=== PATIENT | female | born 1995 | race Caucasian/White ===

== ENCOUNTER 2021-01-30 13:14 | Emergency (ER) | payer BC ==
[2021-01-30] MEDS: Ondansetron 4 MG/2 ML SDV IVPUSH ONE (14:15)
[2021-01-30] MEDS: Sodium Chloride 0.9% 1,000 ML IV ONE (14:15)
--- NOTE | 2021-01-30 14:41 | PCM.EKG ---
#1 Interpretation EKG Date: 01/30/21 Time: 14:18 Rhythm: NSR Rate (Beats/Min): 68 ST-T: Normal
[2021-01-30 14:52] LABS: BLOOD UREA NITROGEN,BUN 13 mg/dL (7.0-18.0); CARBON DIOXIDE,CO2 24.5 mmol/L (21.0-32.0); CHLORIDE,CL 103 mmol/L (98-107); GLUCOSE RANDOM 77 mg/dL (74-106); LIPASE 70 U/L (73-393); POTASSIUM,K 3.9 mmol/L (3.5-5.1); SODIUM,NA 138 mmol/L (136-145)
[2021-01-30] MEDS: Iopamidol 755 MG/ML 500 ML Multipack Bottle IVPUSH STA (15:46)
--- NOTE | 2021-01-30 16:34 | CT ---
INDICATION: Periumbilical and right lower quadrant pain. Vomiting. COMPARISON: None available TECHNIQUE: CT examination of the abdomen and pelvis was performed with the uneventful intravenous administration of 100 cc of Isovue 370 while 3 mm thick axial sections were obtained from the lung bases through the pubic symphysis. Oral contrast was not administered. Please note that all CT scans at this facility use dose modulation, iterative reconstruction, and/or weight-based dosing when appropriate to reduce radiation dose to as low as reasonably achievable. FINDINGS: In the abdomen, the liver, spleen, pancreas, and adrenals are normal in appearance. The kidneys are normal in appearance. The gallbladder is normal in appearance. The abdominal aorta is normal in caliber with no sign of dilatation. There is no sign of retroperitoneal mass or adenopathy. The stomach, loops of small bowel, and colon in the abdomen are normal in appearance. There is inflammation throughout but appears to be a small fat containing periumbilical hernia, suggesting infarction of this hernia. There is no sign of any surrounding cellulitis. The intra-abdominal contents deep to this structure are normal in appearance. Recommend correlation with the clinical exam. In the pelvis, the appendix is index The loops of small bowel and colon in the pelvis are normal in appearance. The the uterus and adnexal regions are normal in appearance. The urinary bladder is normal in appearance. There is no sign of pelvic or inguinal mass or adenopathy. There is no sign of free air or free fluid in the abdomen or pelvis. The lung bases are clear. The osseous structures are normal in appearance for the patient`s age. IMPRESSION: CT of the pelvis shows high density throughout a small fat containing periumbilical hernia suggesting infarction of the fat. Recommend correlation with the clinical exam. Nothing seen to correlate with history of right lower quadrant pain. Normal appearance of the appendix. Normal appearance of the right adnexal region. Normal CT of the abdomen with contrast. Please note that all CT scans at this facility use dose modulation, iterative reconstruction, and/or weight-based dosing when appropriate to reduce radiation dose to as low as reasonably achievable. Dictated by Jeffery Bean MD @ 01/30/2021 4:32:[address] Jeffery Bean @ Jan 30 2021 4:32PM
--- NOTE | 2021-01-30 16:41 | EDM.PDOC ---
ED HPI GENERAL MEDICAL PROBLEM - General Chief Complaint: General Stated Complaint: DEHYDRATION Time Seen by Provider: 01/30/21 13:46 Source of Information: Reports: Patient History Limitations: Reports: No Limitations - History of Present Illness INITIAL COMMENTS - FREE TEXT/NARRATIVE: HISTORY AND PHYSICAL: History of present illness: Patient is a 25-year-old female who presents emergency room today with concern of periumbilical abdominal pain, vomiting, and diarrhea over the past 4 days. Patient states that she was concerned that she was getting dehydrated as she has had some dizziness associated with standing and feel that she cannot keep up with the oral intake due to vomiting. Patient states that over the course of the past 4 days, her vomiting and diarrhea has improved but states that she still feels behind with consuming fluids as she is nauseous. Patient states her abdominal pain has improved from what it was 2 days ago but she continues to have periumbilical abdominal pain. Patient states that she has a history of asthma but denies any other health history. Patient states that she is sexually active with her significant other and is on control so does not believe to be . Patient denies any other symptoms or concerns. Patient denies fever, chills, chest pain, shortness of breath, or cough. Denies headache, neck stiff ness, change in vision, syncope, or near syncope. Denies constipation, or dysuria. Has not noted any blood in urine or stool. Patient has been eating and drinking appropriately. Review of systems: As per history of present illness and below otherwise all systems reviewed and negative. Past medical history: As per history of present illness and as reviewed below otherwise noncontributory. Surgical history: As per history of present illness and as reviewed below otherwise noncontributory. Social history: See social history for further information Family history: As per history of present illness and as reviewed below otherwise noncontributory. Physical exam: General: Patient is alert, oriented, and in no acute distress. Patient laying comfortably on exam table. Vitals stable and reviewed by me HEENT: Atraumatic, normocephalic, pupils equal and reactive bilaterally, negative for conjunctival pallor or scleral icterus, mucous membranes dry, TMs normal bilaterally, throat clear, neck supple, nontender, trachea midline. No drooling or trismus noted. No meningeal signs. No hot potato voice noted. Lungs: Clear to auscultation, breath sounds equal bilaterally, chest nontender. Heart: S1S2, regular rate and rhythm without overt murmur Abdomen: BMI of 36 which limits my abdominal exam. Otherwise, soft, nondistended, mild-moderate periumbilical tenderness without guarding, negative vogel/rebound. Negative for masses or hepatosplenomegaly. Negative for costovertebral tenderness. Pelvis: Stable nontender. Genitourinary: Deferred. Rectal: Deferred. Skin: Intact, warm, dry. No lesions or rashes noted. Extremities: Atraumatic, negative for cords or calf pain. Neurovascular unremarkable. Neuro: Awake, alert, oriented. Cranial nerves II through XII unremarkable. Cerebellum unremarkable. Motor and sensory unremarkable throughout. Exam nonfocal. Notes: Patient is a 25-year-old female who presents emergency room today secondary to nausea, vomiting, diarrhea, and periumbilical abdominal pain over the past 4 days. Upon arrival to the ED, patient is vitally stable and well-appearing on exam and does have some mild-mod periumbilical tenderness and does have dry mucous membranes. Will obtain lab work, stool study, hCG with a plan to obtain abdominal pelvic CT scan. We will also provide a dose of Zofran and fluids due to presumed dehydration. See Dr. Adam's dictation for specific EKG interpretation. However, normal sinus rhythm without STEMI. Mild derangements of CBC unremarkable. Mild derangements of CMP unremarkable. Troponin negative. Lipase 70 within normal limits. hCG negative. Urinalysis clear of infection. Abdominal pelvic CT shows a high density throughout a small fat-containing periumbilical hernia suggesting infarction of the fat. Nothing seen to correlate with history of right lower quadrant pain. Normal appearance of appendix. Normal appearance of right adnexal region. Normal CT of abdomen with contrast. Upon reevaluation of patient, she remains vitally stable and comfortable throughout stay in ED. She does not have any episodes of vomiting and able to tolerate p.o. intake in the ED. Patient was unable to leave a stool sample today in the emergency room so has been provided with outpatient lab and stool collection supplies to return as to her lab when she is able to leave a stool sample. Strict return precautions thoroughly discussed with patient. Discussed importance for follow-up with a primary care provider. Voices understanding and is agreeable to plan of care. Denies any further questions or concerns at this time. Diagnostics: CBC, CMP, UA, serum hCG, lipase, abdominal pelvic CT scan with contrast, stool studies, orthostatic vitals Therapeutics: Saline, Zofran (I did offer Toradol but patient declines) Prescription: Zofran Impression: Nausea and vomiting, not intractable Periumbilical abdominal pain, unspecified Diarrhea, unspecified Dehydration Umbilical hernia Plan: 1. Take medication as prescribed. You can alternate ibuprofen and Tylenol as directed for pain and discomfort. 2. Follow-up with your primary care provider and general surgeon as discussed. Return to the ED as needed and as discussed. 3. Stool collection supplies have been provided to you. Once you are able to leave a stool sample, you can turn this to her lab for further diagnostic completion. Definitive disposition and diagnosis as appropriate pending reevaluation and review of above. Mid-Anterior Abdomen Pain Score (Numeric/FACES): 6 - Related Data Allergies Allergy/AdvReac Type Severity Reaction Status Date / Time Cats Allergy Rash Uncoded 10/25/13 07:28 Dogs Allergy Itching Uncoded 10/25/13 07:28 Dust Allergy Rash Uncoded 10/25/13 07:28 Home Meds: Home Meds Amitriptyline [Elavil] 50 mg PO 10/25/13 [History] Drospir/Eth Estra/Levomefol Ca [Beyaz 28] 1 each PO 10/25/13 [History] Naproxen Sodium/SUMAtriptan [Treximet 500-85 MG] 1 tab PO DAILY PRN 10/25/13 [History] SUMAtriptan [Imitrex] 50 mg SUBCUT PRN 10/25/13 [History] Sertraline [Zoloft] 100 mg PO DAILY 10/25/13 [History] buPROPion HCL [Wellbutrin SR] 150 mg PO DAILY 10/25/13 [History] Ondansetron [Zofran ODT] 4 mg PO Q6H PRN #8 tab.dis 01/30/21 [Rx] Past Medical History - Past Health History Medical/Surgical History: Denies Medical/Surgical History Social & Family History - Family History Family Medical History: No Pertinent Family History - Tobacco Use Tobacco Use Status *Q: Never Tobacco User - Caffeine Use Caffeine Use: Reports: None - Recreational Drug Use Recreational Drug Use: No ED ROS GENERAL - Review of Systems Review Of Systems: Comprehensive ROS is negative, except as noted in HPI. ED EXAM, GENERAL - Physical Exam Exam: See Below (See dictation) Course - Vital Signs Last Recorded V/S: Last Vital Signs Temp 98.2 F 01/30/21 17:08 Pulse 74 01/30/21 17:08 Resp 18 01/30/21 17:08 BP 130/74 01/30/21 17:08 Pulse Ox 98 01/30/21 17:08 Orthostatic Blood Pressure [ 141/81 Standing] Orthostatic Blood Pressure [ 136/84 Sitting] Orthostatic Blood Pressure [ 146/86 Supine] - Orders/Labs/Meds Labs: Laboratory Tests 01/30/21 01/30/21 01/30/21 Range/Units 14:15 14:15 14:15 WBC 10.10 (4.0-11.0) K/uL RBC 4.41 (4.30-5.90) M/uL Hgb 14.5 (12.0-16.0) g/dL Hct 42.0 (36.0-46.0) % MCV 95.2 (80.0-98.0) fL MCH 32.9 H (27.0-32.0) pg MCHC 34.5 (31.0-37.0) g/dL RDW Std Deviation 43.0 (28.0-62.0) fl RDW Coeff of Jennifer 12 (11.0-15.0) % Plt Count 267 (150-400) K/uL MPV 11.80 (7.40-12.00) fL Neut % (Auto) 65.9 (48.0-80.0) % Lymph % (Auto) 25.3 (16.0-40.0) % Glenn % (Auto) 6.1 (0.0-15.0) % Eos % (Auto) 2.5 (0.0-7.0) % Baso % (Auto) 0.2 (0.0-1.5) % Neut # (Auto) 6.7 H (1.4-5.7) K/uL Lymph # (Auto) 2.6 H (0.6-2.4) K/uL Glenn # (Auto) 0.6 (0.0-0.8) K/uL Eos # (Auto) 0.3 (0.0-0.7) K/uL Baso # (Auto) 0.0 (0.0-0.1) K/uL Nucleated RBC % 0.0 /100WBC Nucleated RBCs # 0 K/uL Sodium 138 (136-145) mmol/L Potassium 3.9 (3.5-5.1) mmol/L Chloride 103 (98-107) mmol/L Carbon Dioxide 24.5 (21.0-32.0) mmol/L BUN 13 (7.0-18.0) mg/dL Creatinine 0.8 (0.6-1.0) mg/dL Est Cr Clr Drug Dosing 104.54 mL/min Estimated GFR (MDRD) > 60.0 ml/min Glucose 77 (74-106) mg/dL Calcium 8.6 (8.5-10.1) mg/dL Total Bilirubin 0.4 (0.2-1.0) mg/dL AST 27 (15-37) IU/L ALT 41 (14-63) IU/L Alkaline Phosphatase 58 (46-116) U/L Troponin I < 0.050 (0.000-0.056) ng/mL Total Protein 7.1 (6.4-8.2) g/dL Albumin 3.3 L (3.4-5.0) g/dL Globulin 3.8 (2.6-4.0) g/dL Albumin/Globulin Ratio 0.9 (0.9-1.6) Lipase 70 L (73-393) U/L HCG, Qual NEGATIVE (NEG) Urine Color Urine Appearance Urine pH (5.0-8.0) Ur Specific [place] (1.001-1.035) Urine Protein (NEGATIVE) mg/dL Urine Glucose (UA) (NEGATIVE) mg/dL Urine Ketones (NEGATIVE) mg/dL Urine Occult Blood (NEGATIVE) Urine Nitrite (NEGATIVE) Urine Bilirubin (NEGATIVE) Urine Urobilinogen (<2.0) EU/dL Ur Leukocyte Esterase (NEGATIVE) Urine RBC (0-2/HPF) Urine WBC (0-5/HPF) Ur Epithelial Cells (NONE-FEW) Urine Bacteria (NEGATIVE) Urine Mucus (NONE-MOD) 01/30/ Range/Units 14:32 WBC (4.0-11.0) K/uL RBC (4.30-5.90) M/uL Hgb (12.0-16.0) g/dL Hct (36.0-46.0) % MCV (80.0-98.0) fL MCH (27.0-32.0) pg MCHC (31.0-37.0) g/dL RDW Std Deviation (28.0-62.0) fl RDW Coeff of Jennifer (11.0-15.0) % Plt Count (150-400) K/uL MPV (7.40-12.00) fL Neut % (Auto) (48.0-80.0) % Lymph % (Auto) (16.0-40.0) % Glenn % (Auto) (0.0-15.0) % Eos % (Auto) (0.0-7.0) % Baso % (Auto) (0.0-1.5) % Neut # (Auto) (1.4-5.7) K/uL Lymph # (Auto) (0.6-2.4) K/uL Glenn # (Auto) (0.0-0.8) K/uL Eos # (Auto) (0.0-0.7) K/uL Baso # (Auto) (0.0-0.1) K/uL Nucleated RBC % /100WBC Nucleated RBCs # K/uL Sodium (136-145) mmol/L Potassium (3.5-5.1) mmol/L Chloride (98-107) mmol/L Carbon Dioxide (21.0-32.0) mmol/L BUN (7.0-18.0) mg/dL Creatinine (0.6-1.0) mg/dL Est Cr Clr Drug Dosing mL/min Estimated GFR (MDRD) ml/min Glucose (74-106) mg/dL Calcium (8.5-10.1) mg/dL Total Bilirubin (0.2-1.0) mg/dL AST (15-37) IU/L ALT (14-63) IU/L Alkaline Phosphatase (46-116) U/L Troponin I (0.000-0.056) ng/mL Total Protein (6.4-8.2) g/dL Albumin (3.4-5.0) g/dL Globulin (2.6-4.0) g/dL Albumin/Globulin Ratio (0.9-1.6) Lipase (73-393) U/L HCG, Qual (NEG) Urine Color YELLOW Urine Appearance CLEAR Urine pH 6.0 (5.0-8.0) Ur Specific [place] >= 1.030 (1.001-1.035) Urine Protein NEGATIVE (NEGATIVE) mg/dL Urine Glucose (UA) NEGATIVE (NEGATIVE) mg/dL Urine Ketones NEGATIVE (NEGATIVE) mg/dL Urine Occult Blood SMALL H (NEGATIVE) Urine Nitrite NEGATIVE (NEGATIVE) Urine Bilirubin NEGATIVE (NEGATIVE) Urine Urobilinogen 0.2 (<2.0) EU/dL Ur Leukocyte Esterase NEGATIVE (NEGATIVE) Urine RBC 0-3 (0-2/HPF) Urine WBC 0-2 (0-5/HPF) Ur Epithelial Cells FEW (NONE-FEW) Urine Bacteria FEW (NEGATIVE) Urine Mucus LIGHT (NONE-MOD) Meds: Medications Discontinued Medications Generic Name Dose Route Start Last Admin Trade Name Freq PRN Reason Stop Dose Admin Sodium Chloride 1,000 mls @ 999 mls/hr 01/30/21 13:57 01/30/21 14:15 Normal Saline IV 01/30/21 14:57 999 mls/hr BOLUS ONE Administration Iopamidol 100 ml 01/30/21 15:46 01/30/21 15:46 Iopamidol 755 Mg/Ml 500 Ml Multipack Bottle IVPUSH 01/30/21 15:47 100 ml ONETIME STA Administration Ondansetron HCl 4 mg 01/30/21 13:57 01/30/21 14:15 Ondansetron 4 Mg/2 Ml Sdv IVPUSH 01/30/21 13:58 4 mg ONETIME ONE Administration Departure - Departure Time of Disposition: 16:40 Disposition: Home, Self-Care 01 Clinical Impression: Dehydration Umbilical hernia Qualifiers: Obstruction and gangrene presence: without obstruction or gangrene Qualified Code(s): K42.9 - Umbilical hernia without obstruction or gangrene Abdominal pain Qualifiers: Abdominal location: periumbilical Qualified Code(s): R10.33 - Periumbilical pain Nausea and vomiting Qualifiers: Vomiting type: unspecified Vomiting Intractability: non-intractable Qualified Code(s): R11.2 - Nausea with vomiting, unspecified Diarrhea Qualifiers: Diarrhea type: unspecified type Qualified Code(s): R19.7 - Diarrhea, unspecified - Discharge Information Prescriptions: Ondansetron [Zofran ODT] 4 mg PO Q6H PRN #8 tab.dis PRN Reason: Nausea/Vomiting Instructions: Umbilical Hernia, Adult Referrals: PCP,None [Primary Care Provider] - Forms: ED Department Discharge Additional Instructions: The following information is given to patients seen in the emergency department who are being discharged to home. This information is to outline your options for follow-up care. We provide all patients seen in our emergency department with a follow-up referral. The need for follow-up, as well as the timing and circumstances, are variable depending upon the specifics of your emergency department visit. If you don't have a primary care physician on staff, we will provide you with a referral. We always advise you to contact your personal physician following an emergency department visit to inform them of the circumstance of the visit and for follow-up with them and/or the need for any referrals to a consulting specialist. The emergency department will also refer you to a specialist when appropriate. This referral assures that you have the opportunity for follow-up care with a specialist. All of these measure are taken in an effort to provide you with optimal care, which includes your follow-up. Under all circumstances we always encourage you to contact your private physician who remains a resource for coordinating your care. When calling for follow-up care, please make the office aware that this follow-up is from your recent emergency room visit. If for any reason you are refused follow-up, please contact the [facility] Emergency Department at and asked to speak to the emergency department charge nurse. [facility] [address] [place] [id number] [address] [facility] - General Surgery Professional Building [address] [place] [address], [address] [place] [address] 1. Take medication as prescribed. You can alternate ibuprofen and Tylenol as directed for pain and discomfort. 2. Follow-up with your primary care provider and general surgeon as discussed. Return to the ED as needed and as discussed. 3. Stool collection supplies have been provided to you. Once you are able to leave a stool sample, you can turn this to her lab for further diagnostic completion. Sepsis Event Note (ED) - Evaluation Sepsis Screening Result: No Definite Risk - Focused Exam Vital Signs: Vital Signs Temp Pulse Resp BP Pulse Ox 01/30/21 17:08 98.2 F 74 18 130/74 98 01/30/21 16:30 78 18 126/72 98 01/30/21 15:22 74 18 125/79 98 01/30/21 14:31 68 18 125/88 98 01/30/21 13:48 98.3 F 84 20 136/81 98
== END 2021-01-30 17:08 | disposition home or self-care (01) ==
LOC: MW.ED 13:14
DX: E86.0 Dehydration (principal); K42.9 Umbilical hernia without obstruction or gangrene; R19.7 Diarrhea, unspecified; Z91.048 Other nonmedicinal substance allergy status
CPT/HCPCS: 36415; 74177; 80053; 81001; 83690; 84484; 84703; 85025; 93005; 96374; 99284; J2405; J7030; Q9967

== ENCOUNTER 2024-09-20 10:07 | Inpatient (IN) | payer MEDICAID ==
[2024-09-20] MEDS ORDERED: ceFAZolin 2 GM in Sodium Chloride 0.9% 50 ML IV ONE (11:16)
[2024-09-20] MEDS ORDERED: Sodium Chloride 0.9% 10 ML Syringe FLUSH PRN (11:16)
[2024-09-20] MEDS ORDERED: Sodium Chloride 0.9% 2.5 ML Syringe FLUSH PRN (11:16)
[2024-09-20] MEDS ORDERED: Citric Acid/Sodium Citrate Solution 30 ML Cup PO ONE ×2 (11:16→12:00)
[2024-09-20] MEDS ORDERED: Sodium Chloride 0.9% 20 ML SDV IV PRN (11:16)
[2024-09-20] MEDS: Lactated Ringers 1,000 ML IV SCH ×2 (11:25→16:15)
[2024-09-20] MEDS ORDERED: Oxytocin/0.9 % Sodium Chloride 30 UNIT/500 ML BAG IV SCH (11:30)
[2024-09-20 11:36] LABS: HEMATOCRIT 34.7 % (37.0-47.0); HEMOGLOBIN 12.6 g/dL (12.0-16.0); MEAN CORPUSCULAR HEMOGLOBIN 32.4 pg (28.0-32.0); MEAN CORPUSCULAR HGB CONC 36.3 g/dL (32.0-36.0); MEAN CORPUSCULAR VOLUME 89.2 fL (83.0-99.0); MEAN PLATELET VOLUME 12.4 fL (9.4-12.3); NRBC ABSOLUTE 0.02 K/uL (0.00-0.02); NRBC PERCENT 0.2 /100WBC (0.0-0.2); PLATELET COUNT,PLT 148 K/uL (150-400); RED BLOOD CELL COUNT 3.89 M/uL (4.10-5.30); WHITE BLOOD CELL COUNT,WBC 9.32 K/uL (3.9-11.3)
[2024-09-20] MEDS ORDERED: fentaNYL 100 MCG/2 ML SDV ONE (11:59)
[2024-09-20] MEDS ORDERED: Morphine PF 10 MG/10 ML SDV ONE (11:59)
[2024-09-20] MEDS ORDERED: Oxytocin 10 Units/1 ML SDV ONE (12:00)
[2024-09-20] MEDS ORDERED: Phenylephrine 1% 10 MG/ML SDV ONE (12:00)
[2024-09-20] MEDS ORDERED: ePHEDrine 50 MG/ML SDV ONE (12:00)
[2024-09-20] MEDS ORDERED: dexmedeTOMIDine HCl 200 MCG/2 ML SDV ONE (12:00)
[2024-09-20] MEDS ORDERED: Ondansetron 4 MG/2 ML SDV ONE (12:00)
[2024-09-20] MEDS ORDERED: Ropivacaine 0.5% 5 MG/ML 30 ML SDV ONE (12:00)
[2024-09-20] MEDS ORDERED: Dexamethasone 4 MG/ML 5 ML MDV ONE (12:00)
[2024-09-20] MEDS ORDERED: ceFAZolin 2 GM Vial ONE (12:00)
[2024-09-20] MEDS ORDERED: Midazolam 1 MG/ML 2 ML SDV ONE (12:01)
[2024-09-20] MEDS ORDERED: Sodium Chloride 0.9% 20 ML ONE (12:02)
[2024-09-20] MEDS ORDERED: droPERidol 5 MG/2 ML SDV ONE (12:28)
[2024-09-20] MEDS ORDERED: Misoprostol 200 MCG Tab RECTAL PRN (13:20)
[2024-09-20] MEDS ORDERED: Methylergonovine 0.2 MG/1 ML Amp IM PRN (13:20)
[2024-09-20] MEDS ORDERED: Lanolin 100% Cream 7 GM Tube TOP PRN (13:20)
[2024-09-20] MEDS ORDERED: Oxytocin 10 Units/1 ML SDV IM PRN (13:20)
[2024-09-20] MEDS ORDERED: Naloxone 0.4 MG/ML SDV IVPUSH PRN ×2 (13:20→13:40)
[2024-09-20] MEDS ORDERED: Ondansetron 4 MG/2 ML SDV IVPUSH PRN ×3 (13:20→13:40)
[2024-09-20] MEDS ORDERED: Bisacodyl 10 MG Supp RECTAL PRN (13:20)
[2024-09-20] MEDS ORDERED: diphenhydrAMINE 50 MG/ML SDV IVPUSH PRN ×2 (13:20→13:40)
[2024-09-20] MEDS ORDERED: Ketorolac 30 MG/ML SDV IVPUSH SCH (13:30)
[2024-09-20] MEDS ORDERED: Morphine 2 MG/ML SYRINGE IVPUSH PRN (13:40)
[2024-09-20] MEDS ORDERED: HYDROmorphone 1 MG/ML Syringe IVPUSH PRN (13:40)
[2024-09-20] MEDS ORDERED: Metoclopramide 10 MG/2 ML SDV IVPUSH PRN (13:40)
[2024-09-20] MEDS ORDERED: Phenylephrine HCl In 0.9% NaCl 1 MG/10 ML Syringe IVPUSH PRN (13:40)
[2024-09-20] MEDS ORDERED: Albuterol 0.083% 2.5 MG/3 ML Neb Soln NEB PRN (13:40)
[2024-09-20] MEDS ORDERED: Acetaminophen/oxyCODONE 325-5 MG Tab PO PRN (13:40)
[2024-09-20] MEDS ORDERED: fentaNYL 100 MCG/2 ML SDV IVPUSH PRN (13:40)
[2024-09-20] MEDS ORDERED: fentaNYL 50 MCG/ML SDV IVPUSH PRN (13:40)
[2024-09-20] MEDS ORDERED: Nalbuphine 10 MG/1 ML Vial IVPUSH PRN (13:40)
[2024-09-20 13:44] LABS: PH,UMBILICAL ARTERIAL 7.226 (7.18-7.38); PH,UMBILICAL VENOUS 7.249 (7.25-7.45)
[2024-09-20] MEDS: Acetaminophen 1,000 MG in Premix Bag 1 BAG IV SCH (16:49)
[2024-09-20] MEDS: Ketorolac 30 MG/ML SDV IVPUSH SCH (19:32)
[2024-09-20] MEDS: Docusate Sodium 100 MG Cap PO SCH (21:52)
[2024-09-21 05:56] LABS: HEMATOCRIT 28.3 % (37.0-47.0); HEMOGLOBIN 9.7 g/dL (12.0-16.0)
[2024-09-21] MEDS: oxyCODONE 5 MG Tab PO ONE (11:23)
[2024-09-21] MEDS: Acetaminophen/oxyCODONE 325-5 MG Tab PO PRN ×2 (16:27→22:54)
[2024-09-22] MEDS: Ibuprofen 800 MG Tab PO PRN (03:05)
== END 2024-09-22 11:35 | disposition home or self-care (01) | DRG 788 ==
LOC: MW.OBCHECK 10:07 → MW.OB 10:09 → MW.OBCHECK 11:18 → MW.OB 12:04
PROVIDERS: ADMIT Obstetrics & Gynecology; ATTEND Obstetrics & Gynecology
PROC: 10D00Z1 Extraction of Products of Conception, Low, Open Approach (ICD-10-PCS; principal; 2024-09-20 12:30)
DX: O32.1XX0 Maternal care for breech presentation, not applicable or unspecified (principal); O34.211 Maternal care for low transverse scar from previous cesarean delivery; O40.3XX0 Polyhydramnios, third trimester, not applicable or unspecified; O42.013 Preterm premature rupture of membranes, onset of labor within 24 hours of rupture, third trimester; Z3A.36 36 weeks gestation of pregnancy; Z37.0 Single live birth
CPT/HCPCS: 01961; 36415; 59025; 64999; 82803; 84112; 85014; 85018; 85027; 86592; 86850; 86900; 86901; 99140; A9270-GY; J0131; J0690; J1100; J1790; J1885; J2250; J2274; J2371; J2405; J2590; J2795; J3010; J3490; J7120

== ENCOUNTER 2024-10-22 11:43 | Emergency (ER) | payer MEDICAID ==
[2024-10-22] MEDS ORDERED: Sodium Chloride 0.9% 10 ML Syringe FLUSH PRN (12:17)
[2024-10-22] MEDS: Sodium Chloride 0.9% 1,000 ML IV ONE ×2 (12:50→13:00)
[2024-10-22 13:15] LABS: BASOPHILS ABSOLUTE AUTO 0.04 K/uL (0.00-0.20); BASOPHILS PERCENT AUTO 0.4 % (0.0-1.0); EOSINOPHILS ABSOLUTE AUTO 0.14 K/uL (0.00-0.45); EOSINOPHILS PERCENT AUTO 1.2 % (0.0-6.0); HEMATOCRIT 38.1 % (37.0-47.0); HEMOGLOBIN 13.2 g/dL (12.0-16.0); IMMATURE GRAN ABSOLUTE AUTO 0.04 K/uL (0.00-0.05); IMMATURE GRAN PERCENT AUTO 0.4 % (0.0-0.4); LYMPHOCYTES ABSOLUTE AUTO 2.38 K/uL (1.00-4.80); LYMPHOCYTES PERCENT AUTO 20.9 % (24.0-44.0); MEAN CORPUSCULAR HEMOGLOBIN 30.8 pg (28.0-32.0); MEAN CORPUSCULAR HGB CONC 34.6 g/dL (32.0-36.0); MEAN CORPUSCULAR VOLUME 88.8 fL (83.0-99.0); MEAN PLATELET VOLUME 10.8 fL (9.4-12.3); MONOCYTES ABSOLUTE AUTO 0.47 K/uL (0.00-0.80); MONOCYTES PERCENT AUTO 4.1 % (0.0-8.0); NEUTROPHILS ABSOLUTE AUTO 8.31 K/uL (1.80-7.70); PLATELET COUNT,PLT 253 K/uL (150-400); RED BLOOD CELL COUNT 4.29 M/uL (4.10-5.30); WHITE BLOOD CELL COUNT,WBC 11.38 K/uL (3.9-11.3)
[2024-10-22 13:34] LABS: A/G RATIO 0.9 (0.9-1.6); ALANINE AMINOTRANSFERASE,ALT 70 IU/L (14-63); ALBUMIN 3.4 g/dL (3.4-5.0); ALKALINE PHOSPHATASE 109 U/L (46-116); ASPARTATE AMNIOTRANSFERASE,AST 56 IU/L (15-37); BILIRUBIN TOTAL 0.5 mg/dL (0.2-1.0); BLOOD UREA NITROGEN,BUN 20 mg/dL (7.0-18.0); CALCIUM 8.3 mg/dL (8.5-10.1); CHLORIDE,CL 103 mmol/L (98-107); CREATININE 0.8 mg/dL (0.6-1.0); ESTIMATED GFR 103 mL/min (>60); GLUCOSE RANDOM 78 mg/dL (74-106); MAGNESIUM 1.7 mg/dL (1.8-2.4); SODIUM,NA 142 mmol/L (136-145)
== END 2024-10-22 14:40 | disposition home or self-care (01) ==
LOC: MW.ED 11:43
DX: E86.0 Dehydration (principal); J45.909 Unspecified asthma, uncomplicated; F17.210 Nicotine dependence, cigarettes, uncomplicated; Z91.048 Other nonmedicinal substance allergy status; Z79.899 Other long term (current) drug therapy
CPT/HCPCS: 36415; 80053; 83735; 85025; 96360; 99284; J7030; 99283